=== PATIENT | male | born 1965 | race Caucasian/White ===

== ENCOUNTER → 2017-03-20 | Outpatient (CLI) | payer BC, OTHER ==
--- NOTE | 2017-03-20 14:41 | RAD ---
Indication: Possible plastic foreign body stuck in the throat. Time of exam 1431 hours. 2 views of the soft tissues of the neck were obtained. No definite radiopaque foreign body is identified. The prevertebral tissues are unremarkable. No soft tissue gas is detected. The airway appears patent. The epiglottis is unremarkable. Impression: No abnormality is detected.
== END | disposition home or self-care (01) ==
LOC: DXRADRC 14:14
PROVIDERS: ATTEND Family Medicine
DX: T17.208A Unspecified foreign body in pharynx causing other injury, initial encounter (principal); X58.XXXA Exposure to other specified factors, initial encounter; Y93.89 Activity, other specified; Y92.89 Other specified places as the place of occurrence of the external cause; Y99.8 Other external cause status
CPT/HCPCS: 70360